=== PATIENT | male | born 1980 | race Caucasian/White ===

== ENCOUNTER 2018-05-03 11:00 | Outpatient (RCR) | payer MEDICAID, SELFPAY | END 2018-05-03 11:01 | disposition home or self-care (01) | LOC: OT 11:00 | PROVIDERS: PCP Nurse Practitioner Family; Visit Provider Nurse Practitioner Family | DX: M25.511 Pain in right shoulder (principal); M25.512 Pain in left shoulder | CPT/HCPCS: 97014; 97033; 97110; 97165; G0283 ==

== ENCOUNTER → 2018-07-12 12:20 | Outpatient (CLI) | payer MEDICAID, SELFPAY ==
--- NOTE | 2018-07-12 12:26 | XR_ITS ---
XR clavicle RT HISTORY: ITS.REASON: PAIN..ONGOING INJURY X 4 YEARS ORDERING PHYSICIAN: Yazmin Murdock PATIENT AGE: 37 years COMPARISON: None FINDINGS: No fracture or dislocation. A small lucency is noted in the distal aspect of the clavicle nonspecific. This measures 3 mm. The AC joint has an unremarkable appearance. No fracture or dislocation. IMPRESSION: Small subcortical lucency of the distal clavicle, no acute finding
--- NOTE | 2018-07-12 12:27 | XR_ITS ---
XR shoulder LT min 2V HISTORY: Left shoulder pain ITS.REASON: ONGOING INJURY X 4YEARS..PAIN ORDERING PHYSICIAN: Yazmin Murdock PATIENT AGE: 37 years Comparison: FINDINGS: The glenohumeral joint as an unremarkable appearance. There is a faint subcortical lucency of the distal clavicle nonspecific. AC joint has an otherwise unremarkable appearance. IMPRESSION: No acute finding. Possible small Geode of the distal clavicle
--- NOTE | 2018-07-12 12:27 | XR_ITS ---
XR shoulder RT min 2V HISTORY: Pain ITS.REASON: ONGOING INJURY X 4 YEARS..PAIN ORDERING PHYSICIAN: Yazmin Murdock PATIENT AGE: 37 years Comparison: 03/30/2017 FINDINGS: No fracture or dislocation. No lytic or blastic change. There is normal mineralization. The joint spaces are well-preserved. No significant degenerative/arthritic changes. No erosive changes evident. There is a small subcortical lucency of the distal clavicle fairly well-circumscribed of questionable clinical significance possibly due to small to geode IMPRESSION: 1. No acute finding. 2. Small subcortical lucency of the distal clavicle at 3 mm and may be due to a geode
== END ==
PROVIDERS: PCP Internal Medicine Adolescent Medicine; Visit Provider Nurse Practitioner Family
DX: M89.8X1 Other specified disorders of bone, shoulder (principal); M25.511 Pain in right shoulder; M25.512 Pain in left shoulder; G89.29 Other chronic pain
CPT/HCPCS: 73000; 73030

== ENCOUNTER → 2018-07-20 09:26 | Outpatient (CLI) | payer MEDICAID, SELFPAY ==
--- NOTE | 2018-07-20 09:28 | MR_ITS ---
MR shoulder RT wo con COMPARISON: None HISTORY: Right shoulder pain with limited range of motion along with numbness and tingling in right arm weakness ORDERING PHYSICIAN: Yazmin Murdock PATIENT AGE: 37 years TECHNIQUE: Multiplanar multiecho sequences performed without contrast. COMPARISON: 03/30/17 FINDINGS: There are hypertrophic changes of the acromioclavicular joint with edema at the AC joint. There is slightly downsloping acromion. The supraspinatus and infraspinatus tendons have an unremarkable appearance. The scapularis and teres minor tendon also appears unremarkable. No obvious labral tear. The bicipital tendon is in place.. No fracture or dislocation. There is a small amount of subcoracoid fluid suggesting mild subcoracoid bursitis. IMPRESSION: 1. 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 No significant enhancement. No evidence of rotator cuff tear. 3. Small amount of subcoracoid fluid suggesting mild bursitis
== END ==
PROVIDERS: PCP Internal Medicine Adolescent Medicine; Visit Provider Nurse Practitioner Family
DX: M25.511 Pain in right shoulder (principal); M25.411 Effusion, right shoulder; M89.8X1 Other specified disorders of bone, shoulder; G89.29 Other chronic pain
CPT/HCPCS: 73221

== ENCOUNTER 2018-09-20 16:16 | Outpatient (RCR) | payer MEDICAID, SELFPAY ==
--- NOTE | 2018-09-20 16:54 | HMH.PTOPEV ---
PT Outpatient Evaluation Rehab PT Outpatient Evaluation Start: 09/20/18 16:22 Freq: Status: Active Protocol: Document 09/20/18 16:38 KHUSHBUGAL (Rec: 09/20/18 16:54 KHUSHBUBRONWYNMARCOS [id number]) Electronically Signed By Ghassan Suarez, PT 09/20/18 16:38 Outpatient Therapy Subjective History Subjective History Pt is a 37 year old male presenting to outpatient PT with reports of R shoulder pain starting approximately 4 years ago that has progressively gotten worse over the past 4 months. Pt reports initial onset of symptoms started after an episode of carrying carpet rolls up stairs. Most recent diagnostics indicate R ACJ arthropathy and subacromial bursitis. 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 He has most recently received injection that have no provided any relief. He was previously seen in OT for 2 visits. Questionable compliance with OT HEP. Chief Complaint Pain Stiff Clicks Swelling Weakness Symptom Type Ache Sharp Burning Symptoms Relieved By Rest/Positioning OTC Meds Symptoms Aggravated By Physical Activity Lifting Prior Functional Limitations None Current Functional Limitations Reaching Lifting Housework Driving Sleeping Recreation Activity Symptom Description Constant but Variable Level of pain today (0-10) 5 Pain scale - at its best (0-10) 4 Pain scale - at its worst (0-10) 8 Shoulder/Elbow Eval Shoulder Objective Measurements Palpation Tenderness tenderness shoulder exam standard right tenderness over the bicipital tendon right shoulder exam standard tenderness over the SA bursa shoulder right exam standard
== END 2018-09-20 16:19 | disposition home or self-care (01) ==
LOC: PT 16:16
PROVIDERS: Visit Provider Orthopaedic Surgery
DX: M25.511 Pain in right shoulder (principal)
CPT/HCPCS: 97163

== ENCOUNTER → 2018-12-05 12:36 | Outpatient (CLI) | payer MEDICAID, SELFPAY ==
--- NOTE | 2018-12-05 12:50 | XR_ITS ---
XR chest 2V HISTORY: ITS.REASON: smoker/ preop testing ORDERING PHYSICIAN: Tara Ozuna MD PATIENT AGE: 38 years COMPARISON: None FINDINGS: The cardiomediastinal silhouette and pulmonary vascularity are within normal limits. The lungs are clear without infiltrates, suspicious nodules, or pleural effusions. No acute bony abnormalities. IMPRESSION: Negative chest, no acute finding
[2018-12-05 13:56] LABS: INR 0.98 (0.9-1.1); Prothrombin Time 10.1 seconds (9.4-11.8)
[2018-12-05 13:58] LABS: Basophils % 0.3 % (0.1-2.0); Eosinophils % 0.4 % (0.1-12.0); Hemoglobin 16.3 g/dL (14.1-18.0); Lymphocytes # 2.7 K/mm3 (0.7-4.5); Lymphocytes % 26.6 % (10-50); Mean Corpuscular HGB Conc 32.5 g/dL (31.8-35.4); Mean Corpuscular Hemoglobin 29.8 pg (27.0-31.2); Mean Corpuscular Volume 91.6 fl (80-94); Mean Platelet Volume 7.1 fl (7.4-10.4); Monocytes # 0.6 K/mm3 (0.1-1.0); Monocytes % 5.5 % (1.7-9.3); Neutrophils # 6.7 K/mm3 (1.8-7.8); Neutrophils % 67.2 % (37.0-80.0); Platelet Count 338 K/mm3 (142-424); Red Blood Count 5.46 M/mm3 (4.60-6.20); Red Cell Distribution Width 12.5 % (11.5-17.5)
[2018-12-05 15:21] LABS: Alanine Aminotransferase 45 U/L (12-78); Albumin Level 4.2 gm/dL (3.4-5.0); Albumin/Globulin Ratio 1.4 (1.1-1.8); Alkaline Phosphatase 78 U/L (46-116); Anion Gap 13.8 mEq/L (5-15); Aspartate Amino Transferase 20 U/L (15-37); Bilirubin,Total 0.5 mg/dL (0.2-1.0); Blood Urea Nitrogen 14 mg/dL (7-18); Calcium 9.6 mg/dL (8.5-10.1); Carbon Dioxide 27 mmol/L (21.0-32.0); Chloride 105 mmol/L (98-107); Creatinine,Serum 0.76 mg/dL (0.70-1.30); Estimated Glomerular Filt Rate 115 ml/min (>60); GFR (African American) 139 ML/MIN (>60); Globulin 3.1 gm/dl (1.3-3.2); Glucose 109 mg/dL (74-106); Potassium 3.8 mmoL/L (3.5-5.1); Sodium 142 mmol/L (136-145); Total Protein,Serum 7.3 gm/dL (6.4-8.2)
== END ==
PROVIDERS: PCP Internal Medicine Adolescent Medicine; Visit Provider Orthopaedic Surgery
DX: Z01.818 Encounter for other preprocedural examination (principal); M25.511 Pain in right shoulder
CPT/HCPCS: 36415; 71046; 80053; 85025; 85610

== ENCOUNTER 2019-01-30 11:00 | Outpatient (RCR) | payer MEDICAID, SELFPAY ==
--- NOTE | 2019-01-02 14:38 | HMH.OTOPEV ---
OT Inpatient Evaluation Rehab OT Outpatient Eval Start: 01/02/19 11:50 Freq: Status: Active Protocol: Document 01/02/19 11:51 RMARSHALL (Rec: 01/02/19 11:53 [id number] Electronically Signed By Britt Moses OT 01/02/19 11:51 Outpatient Therapy Subjective History Subjective History Pt is a 38 year old male who recently had surgery on right shoulder. Pt is s/p R shoulder arthroscopy, SAD, and DCE on 12/11/18. Pt demonstrates with decreased AROM/PROM and strength. Pt also reports consistent pain at the right shoulder. Pt will continue to be seen in order to address all deficits. Chief Complaint Pain Stiff Weakness Symptom Type Ache Throb Sharp Dull Stabbing Shooting Symptoms Relieved By Rest/Positioning Ice Symptoms Aggravated By Physical Activity Lifting Prior Functional Limitations None Current Functional Limitations Reaching Lifting Housework Dressing Driving Sleeping Standing Recreation Activity Symptom Description Constant but Variable Level of pain today (0-10) 3 Pain scale - at its best (0-10) 3 Pain scale - at its worst (0-10) 10 Shoulder/Elbow Eval Shoulder Objective Measurements Shoulder ROM Right Shoulder Abduction Active Range of 85 degrees Motion (degrees) Shoulder Abduction Passive Range of 110 degrees Motion (degrees) Shoulder Flexion Active Range of Motion 110 degrees (degrees) Query Text: Shoulder Flexion Passive Range of Motion 120 degrees (degrees) Shoulder External Rotation Active Range 40 degrees of Motion (degrees) Shoulder External Rotation Passive Range 80 degrees of Motion (degrees) Shoulder Internal Rotation Active Range 55 degrees of Motion (degrees) Shoulder Internal Rotation Passive Range 60 degrees of Motion (degrees) pain with active ROM shoulder exam right standard
== END 2019-01-30 11:05 | disposition home or self-care (01) ==
LOC: OT 11:00
PROVIDERS: Visit Provider Orthopaedic Surgery
DX: M75.51 Bursitis of right shoulder (principal); M19.011 Primary osteoarthritis, right shoulder
CPT/HCPCS: 97014; 97110; 97140; 97166; G0283

== ENCOUNTER → 2019-05-22 12:57 | Outpatient (CLI) | payer MEDICAID, SELFPAY ==
--- NOTE | 2019-05-22 12:59 | MR_ITS ---
PROCEDURE: MR SHOULDER LT WO CON CLINICAL INDICATION: ROTATOR CUFF SYNDROME OF LEFT SHOULDER Left shoulder pain with limited range of motion COMPARISON: SHOULDCMLT XR shoulder LT min 2V from 07/12/2018 TECHNIQUE: Routine multiplanar multi echo sequences are performed without gadolinium enhancement. FINDINGS: There is mild subacromial stenosis with acromioclavicular arthropathy. There is mild thickening of the supraspinatus tendon with increased T2 signal consistent with tendinopathy/tendinosis. There is focal increased T2 signal involving the distal aspect of the supraspinatus tendon posteriorly and distally consistent with a full-thickness tear. The infraspinatus, subscapularis, and teres minor tendons are intact. No obvious labral tear. Bicipital tendon is in place. There is a small amount of loculated appearing fluid in the subacromial region anteriorly IMPRESSION: 1. There is a full-thickness tear involving the posterior and distal aspect of the supraspinatus tendon. The tear however is not complete. There is no retraction of the supraspinatus tendon or muscle. There does appear to be some intact fibers anteriorly with tendinopathy/tendinosis of the supraspinatus tendon. 2. Subacromial stenosis with acromioclavicular arthropathy Dictated by: Ag Jackson MD 05/24/2019 10:55 Electronically signed by Ag Jackson MD in [place] 05/24/2019 10:55
== END ==
PROVIDERS: PCP Internal Medicine Adolescent Medicine; Visit Provider Internal Medicine Adolescent Medicine
DX: M75.102 Unspecified rotator cuff tear or rupture of left shoulder, not specified as traumatic (principal)
CPT/HCPCS: 73221

== ENCOUNTER → 2020-03-27 12:05 | Outpatient (CLI) | payer OTHER, SELFPAY ==
--- NOTE | 2020-03-27 12:10 | XR_ITS ---
PROCEDURE: XR FOOT LT MIN 3V CLINICAL INDICATION: L FOOT PAIN COMPARISON: No exams were available for comparison FINDINGS: No fracture or dislocation. No lytic or blastic change. There is normal mineralization. The joint spaces are well-preserved. No significant degenerative/arthritic changes. No erosive changes evident. Other findings:None. IMPRESSION: No acute findings. Dictated by: Ag Jackson MD 03/27/2020 14:34 Electronically signed by Ag Jackson MD in [place] 03/27/2020 14:34
== END ==
PROVIDERS: PCP Internal Medicine Adolescent Medicine; Visit Provider Internal Medicine Adolescent Medicine
DX: M79.672 Pain in left foot (principal)
CPT/HCPCS: 73630

== ENCOUNTER 2021-12-13 13:42 | Emergency (ER) | payer OTHER, SELFPAY ==
[2021-12-13 14:45] VITALS: BP 146/98; PULSE 83; RESP 19; TEMP 36.7; O2SAT 99; BMI 28.2
--- NOTE | 2021-12-13 15:07 | HMH.EDUTC ---
[facility] [place] Disposition Clinical Impression: Bronchitis Sinusitis Qualifiers: Sinusitis location: unspecified location Chronicity: unspecified Qualified Code(s): J32.9 - Chronic sinusitis, unspecified Disposition: Home, Self-Care Condition on Discharge: Good Instructions: Sinusitis, DI for Sinusitis Additional Instructions: ? Start antibiotic today. Be sure to complete entire prescription even if feeling better ? Monitor temp. Tylenol every 4 hours as needed and / or ibuprofen every 6 hours as needed ( As long as your primary care physician has told you that it ok to take both. For fever/aches/pains ER if no less than 101 despite Tylenol or Motrin ? Humidifier/vaporizer or hot steamy shower *Tessalon Perles will not cause drowsiness but use at bedtime to help stop cough so that you may get some rest. *Start steroid today. Helps with inflammation therefore, cough and wheezing. Follow directions on the package. Reviewed side effects. Patient reports taking them before. Follow up IMMEDIATELY for new or worsening of symptoms OR no noticeable improvement over the next 48-72 hours. 911 immediately for any life threatening symptoms such as chest pain or difficulty breathing Prescriptions: Benzonatate [Benzonatate 100mg cap] 100 mg PO Q8HP PRN #15 cap PRN Reason: Cough Transmission Status: Pending to [employer] # methylPREDNISolone [Medrol 4mg tab] 4 mg PO DIRECTED #21 tab Transmission Status: Pending to [employer] # Azithromycin [Z-Wai 250mg Tab] 250 mg PO DIRECTED #6 tab Transmission Status: Pending to [employer] # Referrals: Valentin Youssef MD [Primary Care Provider] - As needed Forms: Work/School Release Time of Disposition: 15:25 Medical Decision Making - Jean Pierre Inquiry Pt receiving controlled substance: No Jean Pierre was queried for this patient: No Vital Signs: 12/13/21 14:45 Temperature 98.1 F Temperature Source Oral Pulse Rate [Right Brachial] 83 Respiratory Rate 19 Blood Pressure [Right Arm] 146/98 H Blood Pressure Mean [Right Arm] 114 Blood Pressure Source [Right Arm] Automatic Cuff Blood Pressure Position [Right Arm] Sitting 02 Sat by Pulse Oximetry 99 Oxygen Delivery Method Room Air - Lab Data Lab results reviewed: Yes: I reviewed the patient's lab results. [facility] [place] HPI - General Stated complaint: congestion, ACKERMAN, low temp, nausea, SOA Time Seen by Provider: 12/13/21 15:07 Mode of Arrival: Ambulatory Source of Information: Patient Limitations: No Limitations Description of Symptoms (Recalled from Triage Doc. by RN): PATIENT C/O CONGESTION, COUGH, SOA, AND FATIGUE SINCE MONDAY HEENT Symptoms (Recalled from RN notes): Yes Resp Symptoms (Recalled from RN notes): Yes Skin Symptoms (Recalled from RN notes): No MS Symptoms (Recalled from RN notes): No Functional Status (Recalled from RN notes): WNL - History of Present Illness Provider Complaint: Patient states that he has not felt well for about a week States that he has been having sinus pain and pressure along with drainage in the back of his throat cough, sore throat and not feeling well States he feels like it is trying to move into his chest so he came in to get checked out - Related Data Home Medications Medication Instructions Recorded Confirmed Acetaminophen [Tylenol 325mg 650 mg PO TID 05/27/19 06/03/19 Tablet] Celecoxib 1 tab PO BID 05/27/19 06/03/19 Previous Rx's Medication Instructions Recorded Azithromycin [Z-Wai 250mg Tab] 250 mg PO DIRECTED #6 tab 12/13/21 Benzonatate [Benzonatate 100mg 100 mg PO Q8HP PRN #15 cap 12/13/21 cap] methylPREDNISolone [Medrol 4mg 4 mg PO DIRECTED #21 tab 12/13/21 tab] Allergies Allergy/AdvReac Type Severity Reaction Status Date / Time No Known Allergies Allergy Verified 06/03/19 14:10 - Worker's Comp Is this a Worker's Comp case?: No [facility] History - Hepatitis A Screen Drug use history?: No High r
[2021-12-13 15:08] LABS: UTC Influenza A Antigen Negative (Negative); UTC Influenza B Antigen Negative (Negative)
[2021-12-13 15:25] VITALS: BP 146/98; PULSE 83; RESP 19; TEMP 36.7; O2SAT 99
== END 2021-12-13 15:30 | disposition home or self-care (01) ==
PROVIDERS: Emergency Provider Nurse Practitioner; PCP Internal Medicine Adolescent Medicine
DX: J32.9 Chronic sinusitis, unspecified (principal); I10 Essential (primary) hypertension; F17.210 Nicotine dependence, cigarettes, uncomplicated; Z79.52 Long term (current) use of systemic steroids; Z82.49 Family history of ischemic heart disease and other diseases of the circulatory system; Z82.5 Family history of asthma and other chronic lower respiratory diseases; Z83.3 Family history of diabetes mellitus
CPT/HCPCS: 87804; 99213; G0463

== ENCOUNTER → 2022-02-09 10:00 | Outpatient (CLI) | payer OTHER, SELFPAY ==
--- NOTE | 2022-02-09 10:08 | XR_ITS ---
FINAL REPORT CLINICAL HISTORY: midline low back pain FINDINGS: AP, lateral, and oblique views of the lumbar spine were obtained. There is no acute fracture or acute malalignment. Vertebral body height is preserved. There is mild degenerative disc disease at L4-L5 and L5-S1.. No acute paraspinal abnormality is identified. IMPRESSION: Mild degenerative disc disease at L4-L5 and L5-S1 with no acute osseous abnormalities of the lumbar spine. Reviewed, Interpreted and Dictated by Kelly Ordoñez MD Transcribed by Marya Weir Authenticated by Kelly Ordoñez MD on 02/09/2022 01:15:53 PM [facility]
== END ==
PROVIDERS: PCP Internal Medicine Adolescent Medicine; Visit Provider Internal Medicine Adolescent Medicine
DX: M54.50 Low back pain, unspecified (principal)
CPT/HCPCS: 72110

== ENCOUNTER 2022-02-15 12:52 | Emergency (ER) | payer OTHER, SELFPAY ==
[2022-02-15 13:01] VITALS: BP 142/87; PULSE 89; RESP 17; TEMP 36.7; O2SAT 99; BMI 30.5
--- NOTE | 2022-02-15 13:14 | HMH.EDUTC ---
[facility] [place] Clinical Impression: Low back pain with radiation Disposition: Home, Self-Care Condition on Discharge: Good Instructions: DI for Low Back Pain, DI for Back Strain or Sprain Additional Instructions: Go home and rest. It would be best if you rested tomorrow too. No heavy lifting. No twisting. Take the oral medications as directed. The muscle relaxer (cyclobenzaprine--Flexeril) will make you drowsy, so don't drive or operate heavy machinery after taking it. Don't start the oral steroids (medrol dose pack) until tomorrow, since you had the shots in here today. Follow up with your regular doctor. GO TO THE ER FOR ANY WORSENING SYMPTOMS OR CONCERN, ESPECIALLY BOWEL OR BLADDER ISSUES, SADDLE AREA NUMBNESS, FEVER, ETC Prescriptions: Ondansetron [Zofran 4mg ODT] 4 mg PO Q8HP PRN #20 tab PRN Reason: Nausea Transmission Status: Received by [employer] #[id number] Cyclobenzaprine HCl [Cyclobenzaprine 10mg Tab] 10 mg PO BIDP PRN #20 tab PRN Reason: Muscle Spasm Transmission Status: Received by [employer] #[id number] methylPREDNISolone [Medrol] 4 mg PO DIRECTED 6 Days #21 packet Transmission Status: Received by [employer] #[id number] Referrals: Valentin Youssef MD [Primary Care Provider] - Forms: Work/School Release Time of Disposition: 13:41 Medical Decision Making - Medical Records Medical records reviewed: No: I reviewed the patient's medical records. - Jean Pierre Inquiry Pt receiving controlled substance: No Vital Signs: 02/15/22 13:01 02/15/22 13:51 Temperature 98.1 F 98.1 F Temperature Source Oral Oral Pulse Rate 89 Pulse Rate [Left Radial] 89 Respiratory Rate 17 17 Blood Pressure 142/87 H Blood Pressure [Right Arm] 142/87 H Blood Pressure Mean [Right Arm] 105 02 Sat by Pulse Oximetry 99 Orders (Tests/Meds): ED MEDICATIONS Discontinued Medications Generic Name Dose Route Start Last Admin Trade Name Freq PRN Reason Stop Dose Admin Ketorolac Tromethamine 60 mg 02/15/22 13:32 02/15/22 13:38 Ketorolac 60mg/2ml Vial IM 02/15/22 13:33 60 mg ONCE ONE Administration Methylprednisolone Sodium Succinate 125 mg 02/15/22 13:32 02/15/22 13:37 Methylprednisolone Sod Succ 125mg Vial IM 02/15/22 13:33 125 mg ONCE ONE Administration [facility] [place] HPI - General Stated complaint: back pain Time Seen by Provider: 02/15/22 13:14 Source of Information: Patient Description of Symptoms (Recalled from Triage Doc. by RN): patient comes in with complaints of back pain. pt went to PCP on recently and had a lumbar xray on 02/09. patient states that pain in back has gotten worse. it is on right side of back and pain shoots down into leg. HEENT Symptoms (Recalled from RN notes): No Resp Symptoms (Recalled from RN notes): No Skin Symptoms (Recalled from RN notes): No MS Symptoms (Recalled from RN notes): Yes Functional Status (Recalled from RN notes): wnl - History of Present Illness Provider Complaint: He is here with complaints of low back pain that radiates down his left leg at times. His symptoms began about 1 week ago. He denies any preceding injury, but he did go camping and have to lift something very heavy to get his camper set up before it started. He saw his pcp 3 days ago and an x-ray was done and tramadol was prescribed. He states that the medication is not helping and is having to miss more work - Related Data Home Medications Medication Instructions Recorded Confirmed Acetaminophen [Tylenol 325mg 650 mg PO TID 05/27/19 06/03/19 Tablet] Celecoxib 1 tab PO BID 05/27/19 06/03/19 Previous Rx's Medication Instructions Recorded Azithromycin [Z-Wai 250mg Tab] 250 mg PO DIRECTED #6 tab 12/13/21 Benzonatate [Benzonatate 100mg 100 mg PO Q8HP PRN #15 cap 12/13/21 cap] methylPREDNISolone [Medrol 4mg 4 mg PO DIRECTED #21 tab 12/13/21 tab] Cyclobenzaprine HCl 10 mg PO BIDP PRN #20 tab 02/15/22 [Cycloben
[2022-02-15 13:51] VITALS: BP 142/87; PULSE 89; RESP 17; TEMP 36.7
== END 2022-02-15 13:53 | disposition home or self-care (01) ==
PROVIDERS: Emergency Provider Nurse Practitioner Family; PCP Internal Medicine Adolescent Medicine
DX: M54.50 Low back pain, unspecified (principal); M54.16 Radiculopathy, lumbar region
CPT/HCPCS: 96372; 99212; G0463

== ENCOUNTER → 2022-02-24 08:50 | Outpatient (CLI) | payer OTHER, SELFPAY ==
--- NOTE | 2022-02-24 11:10 | CT_ITS ---
FINAL REPORT CLINICAL HISTORY: INGUINAL PAIN, oral contrast FINDINGS: Technique: Oral contrast was administered. Axial images through the abdomen and pelvis were performed. This study was performed with techniques to keep radiation doses as low as reasonably achievable (ALARA). Individualized dose reduction techniques using automated exposure control or adjustment of mA and/or kV according to the patient's size were employed. Abdomen: The lung bases are clear. The liver is normal in size and attenuation. The gallbladder is present. The spleen is unremarkable. The adrenals are normal. The pancreas is unremarkable. There is a single less than 3 mm nonobstructing left renal stone. The aorta is normal in caliber. There is no free fluid or adenopathy. Pelvis: The appendix is normal. The urinary bladder is unremarkable. There is no free fluid or adenopathy. The descending and sigmoid colon are decompressed but there is likely mild wall thickening which may represent colitis IMPRESSION: No acute intra-abdominal or intrapelvic abnormality. Nonobstructing left renal stone. Descending and sigmoid colon are decompressed, likely with mild wall thickening which may represent colitis., Reviewed, Interpreted and Dictated by Serge Malik III, MD Transcribed by Marya Weir Authenticated and [facility]
== END ==
PROVIDERS: PCP Internal Medicine Adolescent Medicine; Visit Provider Internal Medicine Adolescent Medicine
DX: R10.30 Lower abdominal pain, unspecified (principal)
CPT/HCPCS: 74176

== ENCOUNTER 2023-06-12 14:43 | Emergency (ER) | payer OTHER, SELFPAY ==
--- NOTE | 2023-06-12 14:47 | XR_ITS ---
FINAL REPORT CLINICAL HISTORY: SMASHED INDEX FINGER FINDINGS: 3 views of the right hand were obtained. There is no acute fracture or dislocation. The joint spaces are intact. There is no soft tissue abnormality. IMPRESSION: No acute process. Reviewed, Interpreted and Dictated by Kelly Ordoñez MD Transcribed by Chirag Manuel Authenticated and [facility]
[2023-06-12 14:50] VITALS: BP 149/91; PULSE 74; RESP 19; TEMP 36.6; O2SAT 99; BMI 29.8
--- NOTE | 2023-06-12 15:24 | EXP.UTC ---
Discharge Plan Disposition Patient Disposition: Home, Self-Care Condition: Good Prescriptions Prescriptions: New amoxicillin-pot clavulanate 875-125 mg Tablet 1 tab PO Q12H 7 Days Qty: 14 0RF No Action cyclobenzaprine 10 MG tablet 10 mg PO BIDP PRN (Reason: Muscle Spasm) Qty: 20 0RF methylprednisolone 4 MG tablets,dose pack 4 mg PO DIRECTED 6 Days Qty: 21 0RF ondansetron 4 MG tablet,disintegrating 4 mg PO Q8HP PRN (Reason: Nausea) Qty: 20 0RF celecoxib 200 MG capsule 1 tab PO BID Patient Comments: TAKE 1 CAPSULE BY MOUTH TWICE A DAY FOR 1 WEEK acetaminophen 325 MG tablet 650 mg PO TID azithromycin 250 MG tablet 250 mg PO DIRECTED Qty: 6 0RF Rx Instructions: Take two (2) tablets on day #1, then one (1) tablet day #2 thru #5 methylprednisolone 4 MG tablet 4 mg PO DIRECTED Qty: 21 0RF Rx Instructions: Take as directed on package instructions benzonatate 100 MG capsule 100 mg PO Q8HP PRN (Reason: Cough) Qty: 15 0RF Referrals Follow up/Referrals: Valentin Youssef MD [Primary Care Provider] - See instructions Activity Restrictions/Add. Instructions Additional Instructions/Restrictions: Suture instructions: ?You have required stitches today. Please read the following instructions so you know how to care for them: ?1. Keep wound area dry for the first 24 hours. 2?? May clean gently with mild soap and water, after 48 hours to prevent crusting over suture knots. 3. You may shower if your provider gives permission but do not take a bath until the skin is healed.. 4. Never leave a wet dressing or Band-Aid on your stitches as this allows bacteria to reach the area and may cause infection. Band-aids can cause the wound to sweat and not recommended to wear for long periods of time Watch for signs of infection: ? Increasing redness, tenderness or warmth around the suture site ? Unusual swelling around the site ? Appearance of pus around each suture or any red streaks ? Fever If you develop any of the above signs or symptoms of infection, Follow up with Family Physician immediately 5. Suture removal in _10-12___days 6. Return to [facility] or follow up with family doctor for removal. This can be done by any medical provider dur?ing regular hours on Monday through Monday, by appointment. Clinical Impressions Clinical Impression: Laceration Instructions Patient Instructions: DI for Laceration Repair, DI for Laceration Repair -- Simple Discharge ED Provider: La Roy [facility] [place] HPI General Stated complaint: AO06/12@work, lac on Rt pointer finger Mode of Arrival: Ambulatory Source of Information: Patient Limitations: No Limitations Time Seen by Provider: 06/12/23 15:24 Description of Symptoms (Recalled from Triage Doc. by RN): PATIENT C/O LACERATION TO RIGHT INDEX FINGER AFTER GETTING IT SMASHED BY ROOF SHINGLES TODAY HEENT Symptoms (Recalled from RN notes): No Resp Symptoms (Recalled from RN notes): No Skin Symptoms (Recalled from RN notes): Yes MS Symptoms (Recalled from RN notes): No Functional Status (Recalled from RN notes): WNL History of Present Illness Provider Complaint: Patient states that he was moving some shingles inside the van when he got his right index finger smashed between shingles and door latch States that he has a cut beside his fingernail States that happened around 1130 today unsure of last tetanus Related Data Home Medications Medication Instructions Recorded Confirmed acetaminophen 325 mg tablet 650 mg PO TID Pain 05/27/19 06/03/19 celecoxib 200 mg capsule 1 tab PO BID Pain 05/27/19 06/03/19 Previous Rx's Medication Instructions Recorded azithromycin 250 mg tablet 250 mg PO DIRECTED #6 tabs 12/13/21 benzonatate 100 mg capsule 100 mg PO Q8HP PRN Cough #15 caps 12/13/21 methylprednisolone 4 mg tablet 4 mg PO DIRECTED #21 tabs 12/13/21 cyclobenzaprine 10 mg tablet 10 mg PO BIDP PRN Muscle Spasm #
[2023-06-12 16:55] VITALS: BP 149/91; PULSE 74; RESP 19; TEMP 36.6; O2SAT 99
== END 2023-06-12 17:01 | disposition home or self-care (01) ==
PROVIDERS: Emergency Provider Nurse Practitioner; PCP Internal Medicine Adolescent Medicine
DX: S61.210A Laceration without foreign body of right index finger without damage to nail, initial encounter (principal); F17.210 Nicotine dependence, cigarettes, uncomplicated; W23.0XXA Caught, crushed, jammed, or pinched between moving objects, initial encounter; Z23 Encounter for immunization
CPT/HCPCS: 12001; 73130; 90471; 90715; 96372; 99213; 99214; G0463

== ENCOUNTER 2023-09-14 12:31 | Emergency (ER) | payer OTHER, SELFPAY ==
[2023-09-14 13:30] VITALS: BP 150/90; PULSE 83; RESP 19; TEMP 36.6; O2SAT 98; BMI 29.9
[2023-09-14 13:48] LABS: UTC Influenza A Antigen Negative (Negative); UTC Influenza B Antigen Negative (Negative)
--- NOTE | 2023-09-14 13:56 | EXP.UTC ---
Discharge Plan Disposition Patient Disposition: Home, Self-Care Condition: Good Prescriptions Prescriptions: New benzonatate 100 mg capsule 100 mg PO TID PRN (Reason: cough) Qty: 30 0RF amoxicillin-pot clavulanate 875-125 mg Tablet 1 tab PO Q12H Qty: 20 0RF methylprednisolone [Medrol (Wai)] 4 mg tablets,dose pack See Rx Instructions .Route .COMPLEX 6 Days Qty: 21 0RF Rx Instructions: taper pack; guaifenesin [Mucinex] 600 mg tablet extended release 12hr 1,200 mg PO BID PRN (Reason: cough) Qty: 20 0RF No Action cyclobenzaprine 10 MG tablet 10 mg PO BIDP PRN (Reason: Muscle Spasm) Qty: 20 0RF celecoxib 200 MG capsule 1 tab PO BID Patient Comments: TAKE 1 CAPSULE BY MOUTH TWICE A DAY FOR 1 WEEK Referrals Follow up/Referrals: Valentin Youssef MD [Primary Care Provider] - See instructions Activity Restrictions/Add. Instructions Additional Instructions/Restrictions: *Monitor Temp, Over the counter Motrin or Tylenol as directed/as needed Tylenol every 4 hours and Motrin every 6 hours (as long as your family doctor has told you that you can take it) for fever or pain. and straight to ER if unable to lower temp less than 101.0 after medication given *Warm salt water gargles may help to soothe the throat *Throat Lozenges? *Warm fluids like tea with honey may help to soothe the throat? *Sleep elevated *Humidifier/Vaporizer Take medication as prescribed Follow up IMMEDIATELY for new or worsening symptoms or no Noticeable improvement over the next 48-72 hours. 911 for difficulty breathing or swallowing Clinical Impressions Clinical Impression: Sinusitis Qualifiers: Sinusitis location: unspecified location Chronicity: unspecified Qualified Code(s): J32.9 - Chronic sinusitis, unspecified Instructions Patient Instructions: Sinusitis, DI for Sinusitis Discharge ED Provider: La Roy [facility] HPI General Stated complaint: congestion,runny nose, fever Mode of Arrival: Ambulatory Source of Information: Patient Limitations: No Limitations Time Seen by Provider: 09/14/23 13:56 Description of Symptoms (Recalled from Triage Doc. by RN): PATIENT C/O CONGESTION, COUGH, FATIGUE, AND SOA X 3 DAYS HEENT Symptoms (Recalled from RN notes): Yes Resp Symptoms (Recalled from RN notes): Yes Skin Symptoms (Recalled from RN notes): No MS Symptoms (Recalled from RN notes): No Functional Status (Recalled from RN notes): WNL History of Present Illness Provider Complaint: Patient states that he has been sick for several days States that he has been having sinus congestion and pressure and not able to breath out of his nose and it makes him feel SOA States that he has been having cough but not coughing nothing up, headache and pressure behind his eyes so today when he wasnt feeling any better he came in to get checked Related Data Home Medications Medication Instructions Recorded Confirmed celecoxib 200 mg capsule 1 tab PO BID Pain 05/27/19 06/03/19 Previous Rx's Medication Instructions Recorded cyclobenzaprine 10 mg tablet 10 mg PO BIDP PRN Muscle Spasm #20 02/15/22 tabs amoxicillin 875 mg-potassium 1 tab PO Q12H #20 tabs 09/14/23 clavulanate 125 mg tablet benzonatate 100 mg capsule 100 mg PO TID PRN cough #30 caps 09/14/23 guaifenesin 600 mg tablet, 1,200 mg PO BID PRN cough #20 tabs 09/14/23 extended release 12 hr (Mucinex) methylprednisolone 4 mg tablets in See Rx Instructions .Route 09/14/23 a dose pack (Medrol (Wai)) .COMPLEX 6 days #21 tabs Allergies Allergy/AdvReac Type Severity Reaction Status Date / Time No Known Allergies Allergy Verified 06/03/19 14:10 Worker's Comp Is this a Worker's Comp case?: No PFSH [facility] Disclaimer: The information contained in this section may have been updated after the patient was seen, as this information can be updated by other users. 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 current occupational exposures/hazards: No caffeine: Yes ROS Obtained: Yes All systems reviewed & no additional complaints except as documented and Yes Systems reviewed as appropriate & no additional complaints except as documented Constitutional Constitutional: Reports system reviewed and no additional complaints, except as documented, Reports as per HPI, Reports fatigue and Reports headache(s) ENT Ears, Nose, Mouth, and Throat: Reports system reviewed and no additional complaints, except as documented, Reports as per HPI, Reports headache(s), Reports sinus pain, Reports sinus pressure and Reports sore throat Cardiovascular Cardiovascular: Reports system reviewed and no additional complaints, except as documented and Reports as per HPI Respiratory Respiratory: Reports system reviewed and no additional complaints, except as documented, Reports as per HPI, Reports shortness of breath (at times when he cant breath out of his nose), Denies chest congestion and Reports cough Gastrointestinal Gastrointestingal: Reports system reviewed and no additional complaints, except as documented and as per HPI Musculoskeletal Musculoskeletal: Reports system reviewed and no additional complaints, except as documented and Reports as per HPI Integumentary/Breasts Skin/Breast: Reports system reviewed and no additional complaints, except as documented and Reports as per HPI Neurologic Neurologic: Reports headache(s) Endocrine Endocrine: Reports fatigue Physical Exam General General appearance: alert and in no apparent distress ENT ENT exam: Present mucous membranes moist Expanded ENT Exam TM/Canal exam: Bilateral TM: bulging Nose exam: Present sinus tenderness Throat exam: Present other (Pharyngeal erythema noted with PND) Chest Chest inspection: Present normal inspection and symmetric chest wall rise Respiratory Respiratory exam: Present normal lung sounds bilaterally; Absent respiratory distress or wheezes Cardiovascular Cardiovascular exam: Present regular rate, normal rhythm and normal heart sounds Abdominal Exam Abdominal exam: Present soft and normal bowel sounds; Absent distention or tenderness Neurological Exam Neurological exam: Present alert, oriented X3 and normal gait Medical Decision Making Jean Pierre Inquiry Pt receiving controlled substance: No Jean Pierre was queried for this patient: No Vital Signs: 09/14/23 13:30 Temperature 97.8 F Temperature Source Oral Pulse Rate [Left Brachial] 83 Respiratory Rate 19 Blood Pressure [Left Arm] 150/90 H Blood Pressure Mean [Left Arm] 110 Blood Pressure Source [Left Arm] Automatic Cuff Blood Pressure Position [Left Arm] Sitting 02 Sat by Pulse Oximetry 98 Oxygen Delivery Method Room Air Lab Data Lab results reviewed: Yes I reviewed the patient's lab results. Lab Results 09/14/23 13:33: Influenza Type A Ag Negative, Influenza Type B Ag Negative
[2023-09-14 14:09] VITALS: BP 150/90; PULSE 83; RESP 19; TEMP 36.6; O2SAT 98
== END 2023-09-14 14:13 | disposition home or self-care (01) ==
PROVIDERS: Emergency Provider Nurse Practitioner; PCP Internal Medicine Adolescent Medicine
DX: J01.90 Acute sinusitis, unspecified (principal); R51.9 Headache, unspecified; R50.9 Fever, unspecified; R09.81 Nasal congestion; R06.02 Shortness of breath; R53.83 Other fatigue; R05.9 Cough, unspecified; F17.210 Nicotine dependence, cigarettes, uncomplicated
CPT/HCPCS: 87804; 99212; 99214; G0463

== ENCOUNTER 2024-01-15 20:19 | Emergency (ER) | payer OTHER, SELFPAY ==
[2024-01-15 20:20] VITALS: BP 155/98; PULSE 80; RESP 18; TEMP 36.8; O2SAT 100; BMI 31.0
--- NOTE | 2024-01-15 20:35 | ED_ITS ---
Discharge Plan Disposition Patient Disposition: Home, Self-Care Condition: Good Prescriptions Prescriptions: No Action cyclobenzaprine 10 MG tablet 10 mg PO BIDP PRN (Reason: Muscle Spasm) Qty: 20 0RF benzonatate 100 mg capsule 100 mg PO TID PRN (Reason: cough) Qty: 30 0RF amoxicillin-pot clavulanate 875-125 mg Tablet 1 tab PO Q12H Qty: 20 0RF methylprednisolone [Medrol (Wai)] 4 mg tablets,dose pack See Rx Instructions .Route .COMPLEX 6 Days Qty: 21 0RF Rx Instructions: taper pack; guaifenesin [Mucinex] 600 mg tablet extended release 12hr 1,200 mg PO BID PRN (Reason: cough) Qty: 20 0RF celecoxib 200 MG capsule 1 tab PO BID Patient Comments: TAKE 1 CAPSULE BY MOUTH TWICE A DAY FOR 1 WEEK Referrals Follow up/Referrals: Horace Jaime DO [Staff Physician] - See instructions (Distal tuft fracture fifth finger) Valentin Youssef MD [Primary Care Provider] - See instructions Activity Restrictions/Add. Instructions Additional Instructions/Restrictions: Keep splint on while working. Alternate Tylenol with Motrin as needed for pain swelling. Turn to ER as needed for any worsening signs or symptoms as needed Clinical Impressions Clinical Impression: Closed fracture of tuft of distal phalanx of finger Discharge ED Provider: Vahid Adair General Adult HPI <JASEN Yanes - Last Filed: 01/15/24 21:55> General Chief complaint: Extremity Injury, Upper Stated complaint: AO 01/15/24 1700 Injury little finger left hand Time Seen by Provider: 01/15/24 20:34 Mode of Arrival: Ambulatory Source of Information: Patient Limitations: No Limitations Description of Symptoms (Recalled from ER Triage Doc. by RN): Patient smashed left pinky finger between some cinderblocks at approximately 1700. Small abrasion noted, patient feels as though it's bone on bone . History of Present Illness HPI narrative: Patient presents for evaluation of an injury of his left hand. Patient was moving cinderblock off of a pallet and 1 fell off crushing his left hand between that and another cinderblock. Patient felt immediate pain primarily at the left fifth digit. Patient presents for evaluation patient reports that is painful range of motion still has motor and sensory and denies any other injury. Related Data Home Medications Medication Instructions Recorded Confirmed celecoxib 200 mg capsule 1 tab PO BID Pain 05/27/19 06/03/19 Previous Rx's Medication Instructions Recorded cyclobenzaprine 10 mg tablet 10 mg PO BIDP PRN Muscle Spasm #20 02/15/22 tabs amoxicillin 875 mg-potassium 1 tab PO Q12H #20 tabs 09/14/23 clavulanate 125 mg tablet benzonatate 100 mg capsule 100 mg PO TID PRN cough #30 caps 09/14/23 guaifenesin 600 mg tablet, 1,200 mg (2 x 600 mg) PO BID PRN 09/14/23 extended release 12 hr (Mucinex) cough #20 tabs methylprednisolone 4 mg tablets in See Rx Instructions .Route 09/14/23 a dose pack (Medrol (Wai)) .COMPLEX 6 days #21 tabs Allergies Allergy/AdvReac Type Severity Reaction Status Date / Time No Known Allergies Allergy Verified 06/03/19 14:10 [facility] <JASEN Yanes - Last Filed: 01/15/24 21:55> [facility] Disclaimer: The information contained in this section may have been updated after the patient was seen, as this information can be updated by other users. 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 current occupational exposures/hazards: No caffeine: Yes <JASEN Yanes - Last Filed: 01/15/24 21:55> ROS Obtained: Yes Systems reviewed as appropriate & no additional complaints except as documented Physical Exam <JASEN Yanes - Last Filed: 01/15/24 21:55> General General appearance: alert and in no apparent distress Respiratory Respiratory exam: Present normal lung sounds bilaterally Cardiovascular Cardiovascular exam: Present regular rate and normal rhythm Neurological Exam Neurological exam: Present alert and oriented X3 Other Other exam information: 3 unaffected extremities are intact grossly to exam with full range of motion the left hand has ecchymosis swelling and pain at the fifth digit. There is no obvious deformity. Patient is able to keep the finger in flexion but extension causes more pain. I cannot palpate an obvious deformity. He is neurovascular intact distally. Medical Decision Making <JASEN Yanes - Last Filed: 01/15/24 21:55> Medical Records Medical records reviewed: Yes I reviewed the patient's medical records. Jean Pierre Inquiry Pt receiving controlled substance: No Vital Signs: 01/15/24 20:20 01/15/24 22:01 Temperature 98.3 F 98.0 F Temperature Source Oral Oral Pulse Rate 70 Pulse Rate [Left Radial] 80 Respiratory Rate 18 18 Blood Pressure 125/68 Blood Pressure [Right Arm] 155/98 H Blood Pressure Mean [Right Arm] 117 Blood Pressure Source Automatic Cuff Blood Pressure Source [Right Arm] Automatic Cuff Blood Pressure Position Sitting Blood Pressure Position [Right Arm] Sitting 02 Sat by Pulse Oximetry 100 Oxygen Delivery Method Room Air Room Air Orders (Tests/Meds): ED MEDICATIONS Discontinued Medications Generic Name Dose Route Start Last Admin Trade Name Freq PRN Reason Stop Dose Admin Acetaminophen 1,000 mg 01/15/24 20:38 01/15/24 20:48 Acetaminophen 500mg Tab PO 01/15/24 20:39 1,000 mg ONCE ONE Administration Ketorolac Tromethamine 30 mg 01/15/24 20:38 01/15/24 21:06 Ketorolac 30mg/Ml Vial IV 01/15/24 20:39 Not Given ONCE ONE Ketorolac Tromethamine 30 mg 01/15/24 20:38 01/15/24 20:49 Ketorolac 30mg/Ml Vial IM 01/15/24 20:39 30 mg ONCE ONE Administration Oxycodone HCl 5 mg 01/15/24 20:38 01/15/24 20:52 Oxycodone 5mg Immediate Release Tablet PO 02/14/24 20:37 5 mg Q6HP PRN Administration Severe Pain (7-10) ORDERS Category Date Time Status XR hand LT min 3V Stat Exams 01/15/24 20:38 Completed Medical Decision Narrative: In summary patient is a 43-year-old male who presents to the emergency department for evaluation of crush injury to the left fifth digit. Patient is hemodynamically stable upon arrival, afebrile. Exam is remarkable for trauma to the left fifth digit including a subungual hematoma and abrasions both on the dorsum and volar surfaces of the hand. Differential diagnosis includes contusion versus fracture versus laceration. Initial workup will be conducted with plain film x-rays. Initial interventions include Toradol Tylenol oxycodone. Initial workup reviewed by me and his plain film x-rays informally interpreted by me shows possible distal tuft fracture of the fifth digit otherwise no other acute processes noted.. Upon repeat evaluation patient had adequate pain control. Given this patient is appropriate for discharge with a referral to Dr. Jaime of orthopedics and a finger splint. <Vahid Adair, DO - Last Filed: 01/16/24 00:04> Vital Signs: 01/15/24 20:20 01/15/24 22:01 Temperature 98.3 F 98.0 F Temperature Source Oral Oral Pulse Rate 70 Pulse Rate [Left Radial] 80 Respiratory Rate 18 18 Blood Pressure 125/68 Blood Pressure [Right Arm] 155/98 H Blood Pressure Mean [Right Arm] 117 Blood Pressure Source Automatic Cuff Blood Pressure Source [Right Arm] Automatic Cuff Blood Pressure Position Sitting Blood Pressure Position [Right Arm] Sitting 02 Sat by Pulse Oximetry 100 Oxygen Delivery Method Room Air Room Air Orders (Tests/Meds): ED MEDICATIONS Discontinued Medications Generic Name Dose Route Start Last Admin Trade Name Freq PRN Reason Stop Dose Admin Acetaminophen 1,000 mg 01/15/24 20:38 01/15/24 20:48 Acetaminophen 500mg Tab PO 01/15/24 20:39 1,000 mg ONCE ONE Administration Ketorolac Tromethamine 30 mg 01/15/24 20:38 01/15/24 21:06 Ketorolac 30mg/Ml Vial IV 01/15/24 20:39 Not Given ONCE ONE Ketorolac Tromethamine 30 mg 01/15/24 20:38 01/15/24 20:49 Ketorolac 30mg/Ml Vial IM 01/15/24 20:39 30 mg ONCE ONE Administration Oxycodone HCl 5 mg 01/15/24 20:38 01/15/24 20:52 Oxycodone 5mg Immediate Release Tablet PO 02/14/24 20:37 5 mg Q6HP PRN Administration Severe Pain (7-10) ORDERS Category Date Time Status XR hand LT min 3V Stat Exams 01/15/24 20:38 Completed Medical Decision Narrative: In summary patient is a 43-year-old male who presents to the emergency department for evaluation of crush injury to the left fifth digit. Patient is hemodynamically stable upon arrival, afebrile. Exam is remarkable for trauma to the left fifth digit including a subungual hematoma and abrasions both on the dorsum and volar surfaces of the hand. Differential diagnosis includes contusion versus fracture versus laceration. Initial workup will be conducted with plain film x-rays. Initial interventions include Toradol Tylenol oxycodone. Initial workup reviewed by me and his plain film x-rays informally interpreted by me shows possible distal tuft fracture of the fifth digit otherwise no other acute processes noted.. Upon repeat evaluation patient had adequate pain control. Given this patient is appropriate for discharge with a referral to Dr. Jaime of orthopedics and a finger splint. I was consulted by the BURTON, and we discussed the complexity of the problems being addressed. I approved the treatment and management plan for this patient's care in the Emergency Department, thus performing a substantive portion of the medical decision making. Vahid Adair, DO Critical Care <JASEN Yanes - Last Filed: 01/15/24 21:55> Critical Care Time Critical Care Time: No
--- NOTE | 2024-01-15 20:38 | XR_ITS ---
PROCEDURE INFORMATION: Exam: XR Left Hand Exam date and time: 01/15/2024 8:43 PM Age: 43 years old Clinical indication: Injury or trauma; Other: Crushing injury; Hand; Left; Additional info: Crush injury to the fifth digit TECHNIQUE: Imaging protocol: Radiologic exam of the left hand. Views: 3 or more views. COMPARISON: No relevant prior studies available. FINDINGS: Bones/joints: Limited by patient position with finger flexion. Oblique fracture through the distal tuft 5th digit cannot be excluded. Soft tissues: Normal. IMPRESSION: Limited by patient position with finger flexion. Oblique fracture through the distal tuft 5th digit cannot be excluded.
[2024-01-15] MEDS: ACETAMINOPHEN 500MG TAB 1000 MG PO (20:48)
[2024-01-15] MEDS: KETOROLAC 30MG/ML VIAL 30 MG IM (20:49)
[2024-01-15] MEDS: OXYCODONE 5MG IMMEDIATE RELEASE TABLET 5 MG PO (20:52)
[2024-01-15 22:01] VITALS: BP 125/68; PULSE 70; RESP 18; TEMP 36.7; O2SAT 96
== END 2024-01-15 22:03 | disposition home or self-care (01) ==
PROVIDERS: Emergency Provider Emergency Medicine; PCP Internal Medicine Adolescent Medicine
DX: S62.637A Displaced fracture of distal phalanx of left little finger, initial encounter for closed fracture (principal); F17.210 Nicotine dependence, cigarettes, uncomplicated; W23.0XXA Caught, crushed, jammed, or pinched between moving objects, initial encounter
CPT/HCPCS: 73130; 96372; 96374; 99284

== ENCOUNTER 2024-10-23 16:27 | Emergency (ER) | payer OTHER, SELFPAY ==
[2024-10-23 16:29] VITALS: BP 170/111; PULSE 86; RESP 16; TEMP 36.7; O2SAT 98; BMI 34.0
--- NOTE | 2024-10-23 16:43 | CT_ITS ---
PROCEDURE INFORMATION: Exam: CT Head Without Contrast Exam date and time: 10/23/2024 5:03 PM Age: 44 years old Clinical indication: Weakness, facial; Additional info: R sided facial droop sparing forehead TECHNIQUE: Imaging protocol: Computed tomography of the head without contrast. Radiation optimization: All CT scans at this facility use at least one of these dose optimization techniques: automated exposure control; mA and/or kV adjustment per patient size (includes targeted exams where dose is matched to clinical indication); or iterative reconstruction. COMPARISON: No relevant prior studies available. FINDINGS: Brain: Normal. No hemorrhage. Unremarkable white matter. No mass effect. Cerebral ventricles: No ventriculomegaly. Paranasal sinuses: Visualized sinuses are unremarkable. No fluid levels. Mastoid air cells: Visualized mastoid air cells are well aerated. Bones: Unremarkable. No acute fracture. Soft tissues: Unremarkable. IMPRESSION: No acute intracranial abnormality.
--- NOTE | 2024-10-23 16:43 | CT_ITS ---
PROCEDURE INFORMATION: Exam: CTA Head With Contrast, Arteriography Exam date and time: 10/23/2024 5:05 PM Age: 44 years old Clinical indication: Weakness; Additional info: R sided facial droop sparing forehead TECHNIQUE: Imaging protocol: Computed tomographic angiography of the head with contrast. Exam focused on the arteries. 3D rendering (Not supervised by radiologist): MIP and/or 3D reconstructed images were created by the technologist. Radiation optimization: All CT scans at this facility use at least one of these dose optimization techniques: automated exposure control; mA and/or kV adjustment per patient size (includes targeted exams where dose is matched to clinical indication); or iterative reconstruction. Contrast material: ISOVUE; Contrast volume: 80 ml; Contrast route: INTRAVENOUS (IV); COMPARISON: CT HEAD/BRAIN WO CON 10/23/2024 5:03 PM FINDINGS: ANTERIOR CIRCULATION: Right internal carotid artery: Intracranial segment is patent with no significant stenosis. No aneurysm. Right middle cerebral artery: No occlusion or significant stenosis. No aneurysm. Right anterior cerebral artery: No occlusion or significant stenosis. No aneurysm. Left internal carotid artery: Intracranial segment is patent with no significant stenosis. No aneurysm. Left middle cerebral artery: No occlusion or significant stenosis. No aneurysm. Left anterior cerebral artery: No occlusion or significant stenosis. No aneurysm. POSTERIOR CIRCULATION: Right vertebral artery: No occlusion or significant stenosis. No aneurysm. Left vertebral artery: No occlusion or significant stenosis. No aneurysm. Basilar artery: No occlusion or significant stenosis. No aneurysm. Right posterior cerebral artery: origin of the right posterior cerebral artery. Left posterior cerebral artery: No occlusion or significant stenosis. No aneurysm. IMPRESSION: No hemodynamically significant stenosis or large vessel occlusion.
--- NOTE | 2024-10-23 16:43 | CT_ITS ---
PROCEDURE INFORMATION: Exam: CTA Neck With Contrast Exam date and time: 10/23/2024 5:05 PM Age: 44 years old Clinical indication: Weakness; Additional info: R sided facial droop sparing forehead TECHNIQUE: Imaging protocol: Computed tomographic angiography of the neck with contrast. Exam focused on the cervical segments of the vasculature. 3D rendering (Not supervised by radiologist): MIP and/or 3D reconstructed images were created by the technologist. Radiation optimization: All CT scans at this facility use at least one of these dose optimization techniques: automated exposure control; mA and/or kV adjustment per patient size (includes targeted exams where dose is matched to clinical indication); or iterative reconstruction. Contrast material: ISOVUE; Contrast volume: 80 ml; Contrast route: INTRAVENOUS (IV); COMPARISON: CT ANGIO HEAD 10/23/2024 5:05 PM FINDINGS: Right common carotid artery: No stenosis. No dissection or occlusion. Right internal carotid artery: No stenosis of the extracranial segment. No dissection or occlusion. Right external carotid artery: No occlusion or stenosis of the origin. Left common carotid artery: Mild atheromatous irregularity involving the left common carotid artery without hemodynamically significant stenosis. Left internal carotid artery: No stenosis of the extracranial segment. No dissection or occlusion. Left external carotid artery: No occlusion or stenosis of the origin. Right vertebral artery: No stenosis. No dissection or occlusion. Left vertebral artery: Left vertebral artery is dominant. Soft tissues: Normal. No significant soft tissue swelling. Bones/joints: No acute fracture. IMPRESSION: No significant stenosis or dissection. REFERENCES: NASCET CRITERIA. The degree of stenosis in the cervical segment of the internal carotid artery is based on NASCET criteria. Normal is no stenosis. Mild is less than 50% stenosis. Moderate is 50-69% stenosis. Severe is 70% to 99% stenosis. Total occlusion is no detectable patent lumen.
--- NOTE | 2024-10-23 17:00 | HMH.EDGENADL ---
Discharge Plan Disposition Patient Disposition: Home, Self-Care Prescriptions Prescriptions: New prednisone 10 mg tablet 10 mg PO DIRECTED Qty: 55 0RF Rx Instructions: 40 mg for 5 days 30 mg for 5 days 20 mg for 5 days 10 mg for 5 days 5 mg for 5 days Referrals Follow up/Referrals: Valentin Youssef MD [Primary Care Provider] - See instructions Activity Restrictions/Add. Instructions Additional Instructions/Restrictions: Call your family doctor to establish care for this visit to the emergency department and schedule follow-up within 48 hours to ensure improvement. If you have any worsening of your condition or any other concerning signs or symptoms, return to the emergency department or your primary care doctor for further evaluation. Prednisone taper as prescribed Clinical Impressions Clinical Impression: Facial nerve palsy Print Language Print Language: Setswana Discharge ED Provider: Que Voss General Adult HPI General Chief complaint: Neuro Symptoms/Deficit Stated complaint: sent by Domonique- facial numbness Time Seen by Provider: 10/23/24 16:34 Mode of Arrival: Ambulatory Source of Information: Patient Limitations: No Limitations Description of Symptoms (Recalled from ER Triage Doc. by RN): Patient reports right sided facial numbness, alteration in smile, and his left eye is blinking before his right. States this started yesterday. No other symptoms. History of Present Illness HPI narrative: Please note that above description of symptoms, in this electronic medical record under categorization of recalled from ER triage doctor by RN are reflective of an initial nursing assessment, however, is not reflective of my full history and physical exam that was personally taken and clarified. Consequentially, this preceding description of symptoms, which may include the patient's categorized chief complaint in the EMR, do not reflect my personal clinical impression, and the ultimate description of history of present illness and patient stated complaints should be deferred to this section of the note. Unless stated otherwise or congruent with this section of the note, additional signs, symptoms, or incongruence should be interpreted as inaccurate with my clinical impression. Related Data Previous Rx's ?Medication ?Instructions ?Recorded prednisone 10 mg tablet 10 mg PO DIRECTED #55 tabs 10/23/24 Allergies Allergy/AdvReac Type Severity Reaction Status Date / Time No Known Allergies Allergy Verified 06/03/19 14:10 [facility] Disclaimer: The information contained in this section may have been updated after the patient was seen, as this information can be updated by other users. 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 current occupational exposures/hazards: No caffeine: Yes Have you lived/traveled outside [place] in past 30 days?: No Contact w/someone who lives/traveled outside US past 30 days?: No Exposure to someone with infectious disease in past 14 days?: No Do you have a fever (greater than 100.4 F or 38 C)?: No Have you tested positive for COVID-19: No Exposed to someone with COVID-19 in past 14 days?: No Do you have a sore throat?: No Do you have a cough?: No Do you have any weakness?: No Do you have any diarrhea?: No Are you experiencing any unusual bleeding?: No Do you have any muscle aches/pain?: No Do you have any abdominal pain?: No Are you experiencing loss of taste or smell?: No Other Medical History Have you received the Flu Vaccine for this season: Yes Have you received the Pneumonia Vaccine: No ROS Obtained: Yes All systems reviewed & no additional complaints except as documented Physical Exam General General appearance: alert Head Head exam: atraumatic and normocephalic Eye Eye exam: Present normal appearance, PERRL and EOMI Neck Neck exam: Present normal inspection, full ROM and trachea midline Respiratory Respiratory exam: Absent respiratory distress, wheezes, stridor, accessory muscle use or prolonged expiratory phase Cardiovascular Cardiovascular exam: Present other (Pulses equal symmetric in upper and lower extremities) Abdominal Exam Abdominal exam: Present soft; Absent distention, tenderness or pulsatile mass Extremities Exam Extremities exam: Absent edema Neurological Exam Neurological exam: Present alert, oriented X3, motor sensory deficit and other (Patient has right sided facial droop, inability to completely close right eye. Spares forehead, equal wrinkles superior to the eyebrows); Absent CN II-XII intact Skin Skin exam: Present warm and dry; Absent diaphoresis or erythema Medical Decision Making Medical Records Medical records reviewed: Yes I reviewed the patient's medical records. Screening: Per USPSTF and CDC recommendations, given the prevalence of disease in our region, it is our hospital?s policy to screen for HIV and viral Hepatitis for all patients aged 18 and over and those with ongoing risk factors. Jean [place] Inquiry Pt receiving controlled substance: No Jean [place] was queried for this patient: No Vital Signs: 10/23/24 16:29 Temperature 98.0 F Temperature Source Oral Pulse Rate [Radial] 86 Respiratory Rate 16 Blood Pressure [Right Arm] 170/111 H Blood Pressure Mean [Right Arm] 130 Blood Pressure Source [Right Arm] Automatic Cuff Blood Pressure Position [Right Arm] Sitting 02 Sat by Pulse Oximetry 98 Oxygen Delivery Method Room Air Lab Data Lab Results 10/23/24 16:55: WBC 8.0, RBC 5.19, Hgb 15.3, Hct 46.7, MCV 90.0, MCH 29.5, MCHC 32.8, RDW 12.2, Plt Count 276, MPV 9.5, Neut % (Auto) 57.8, Lymph % (Auto) 31.4, [place] % (Auto) 8.8, Eos % (Auto) 1.3, Baso % (Auto) 0.4, Neut # (Auto) 4.6, Lymph # (Auto) 2.5, [place] # (Auto) 0.7, Eos # (Auto) 0.1, Baso # (Auto) 0.0, Sodium 142, Potassium 4.3, Chloride 106, Carbon Dioxide 28, Anion Gap 12.3, BUN 17, Creatinine 0.80, Estimated Creat Clear 174, Estimated GFR 105, Est GFR ( Amer) 127, Glucose 106 H, Calcium 9.8, Total Bilirubin 0.3, AST 50, ALT 65, Alkaline Phosphatase 80, Total Protein 7.6, Albumin 5.3 H, Globulin 2.3, Albumin/Globulin Ratio 2.3 H 10/23/24 16:55 10/23/24 16:55 Orders (Tests/Meds): ED MEDICATIONS Discontinued Medications Generic Name Dose Route Start Last Admin Trade Name Freq PRN Reason Stop Dose Admin Dexamethasone Sodium Phosphate 10 mg 10/23/24 16:43 10/23/24 17:08 Dexamethasone 4mg/Ml 1ml Vial IV 10/23/24 16:44 10 mg ONCE ONE Administration Iopamidol 80 ml 10/23/24 16:52 10/23/24 17:05 Iopamidol-370 (76%);100ml Bottle IV 10/23/24 16:53 80 ml ONCE ONE Administration Sodium Chloride 50 ml 10/23/24 16:52 10/23/24 17:05 0.9 % Sodium Chloride 50 Ml Vial IV 10/23/24 16:53 50 ml ONCE ONE Administration Sodium Chloride 10 ml 10/23/24 16:52 10/23/24 17:05 Sodium Chloride 0.9% 10ml Syr (Rad Only) IV 10/23/24 16:53 10 ml ONCE ONE Administration ORDERS Category Date Time Status CT angio head Stat Cat Scan 10/23/24 16:[address] angio neck Stat Cat Scan 10/23/24 16:[address] head/brain wo con Stat Cat Scan 10/23/24 16:43 Completed CBC w/Auto Diff [Complete Blood Count Auto Diff] Stat Lab 10/23/24 16:55 Completed CMP [Comprehensive Metabolic Panel] Stat Lab 10/23/24 16:55 Completed HIV Combo Stat Lab 10/23/24 16:55 Received Hepatitis C Ab Qual. W/ RFX Stat Lab 10/23/24 16:55 Received Medical Decision Narrative: 44-year-old male presenting with right-sided facial numbness and drooping. Started 2 days ago, getting worse. No recent illnesses. States that he feels like there is pain in the right side of his neck at the base of his neck as well as swelling. No vision changes, numbness, tingling, weakness anywhere else in his body. Never had anything like this before. History was obtained via conversation with patient. On arrival, patient hemodynamically stable, alert, oriented x4, appropriate, GCS 15, moving all extremities spontaneously, pupils equal and reactive to light. Full physical exam performed and significant for very clinically well-appearing male. Hypertensive. Cranial nerves significant with right-sided facial droop that spares the forehead. I do not appreciate any swelling in the neck, no bruits. Patient's range of motion of the neck is normal. Neurologically intact otherwise. Differential includes facial nerve palsy, intracranial hemorrhage, embolic stroke, among others. CT imaging to be obtained out of abundance of caution given neck tenderness at the base of the neck where the carotid is on the same side patient is having symptoms. Patient placed on continuous cardiac monitoring and continuous pulse ox with initial blood pressure 170/111, heart rate 86, saturation 98% on room air.Patient was given 10 mg Decadron IV for symptomatic management and correction of underlying abnormalities. Workup independently interpreted and significant for nonactionable hematologic workup. On independent interpretation of imaging, no intracranial hemorrhage, no abnormalities of the vessels of the head or neck. Patient resting at baseline on reevaluation. 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 Because patient at baseline without signs or symptoms of clinical decompensation, deemed appropriate for discharge. Results were relayed to patient who voiced understanding and were agreeable to outpatient management and follow up. I discussed my clinical impression with patient and answered all questions. At this time, the evidence for any other entities in the differential is insufficient to warrant any further testing or ED observation. This was explained as well. Advisory was given that persistent or worsening symptoms require further evaluation. I confirmed the understanding of this discussion. [employer] Salesperson disclaimer Much of this encounter note is an electronic chromosomal disorders counselor spoken language to printed text. Electronic chromosomal disorders counselor of the spoken language may permit errors. Although I have reviewed the note, some errors may still exist. Critical Care Critical Care Time Critical Care Time: No
[2024-10-23 17:01] LABS: Basophils % 0.4 % (0.1-2.0); Eosinophils # 0.1 K/mm3 (0.0-0.4); Eosinophils % 1.3 % (0.1-12.0); Hematocrit 46.7 % (42.0-52.0); Hemoglobin 15.3 g/dL (14.1-18.0); Lymphocytes # 2.5 K/mm3 (0.7-4.5); Lymphocytes % 31.4 % (10-50); Mean Corpuscular HGB Conc 32.8 g/dL (31.8-35.4); Mean Corpuscular Hemoglobin 29.5 pg (27.0-31.2); Mean Platelet Volume 9.5 fl (7.4-10.4); Monocytes # 0.7 K/mm3 (0.1-1.0); Monocytes % 8.8 % (1.7-9.3); Neutrophils # 4.6 K/mm3 (1.8-7.8); Neutrophils % 57.8 % (37.0-80.0); Platelet Count 276 K/mm3 (142-424); Red Blood Count 5.19 M/mm3 (4.60-6.20); Red Cell Distribution Width 12.2 % (11.5-17.5)
[2024-10-23] MEDS: 0.9 % SODIUM CHLORIDE 50 ML VIAL IV (17:05)
[2024-10-23] MEDS: IOPAMIDOL-370 (76%);100ML BOTTLE 80 ML IV (17:05)
[2024-10-23] MEDS: SODIUM CHLORIDE 0.9% 10ML SYR (RAD ONLY) 10 ML IV (17:05)
[2024-10-23 17:08] LABS: Albumin Level 5.3 g/dl (3.5-5.0); Chloride 106 mmol/L (98-107); Potassium 4.3 mmoL/L (3.5-5.1); Sodium 142 mmol/L (136-145)
[2024-10-23] MEDS: DEXAMETHASONE 4MG/ML 1ML VIAL 10 MG IV (17:08)
[2024-10-23 17:11] LABS: Alanine Aminotransferase 65 U/L (12-78); Albumin/Globulin Ratio 2.3 (1.1-1.8); Alkaline Phosphatase 80 U/L (38-126); Anion Gap 12.3 mEq/L (5-15); Aspartate Amino Transferase 50 U/L (17-59); Bilirubin,Total 0.3 mg/dl (0.2-1.3); Blood Urea Nitrogen 17 mg/dl (9-20); Carbon Dioxide 28 mmol/L (22.0-30.0); Creatinine Clearance Estimated 174 mL/min (50-200); Estimated Glomerular Filt Rate 105 ml/min (>60); GFR (African American) 127 ML/MIN (>60); Globulin 2.3 g/dL (1.3-3.2); Total Protein,Serum 7.6 g/dl (6.3-8.2)
[2024-10-23 17:12] LABS: Calcium 9.8 mg/dl (8.4-10.2); Glucose 106 mg/dl (74-100)
--- NOTE | 2024-10-23 17:15 | PC.NURSE ---
ROUNDED ON THE PT. THE PT VOICES THAT HE DOES NOT NEED ANYTHING AT THIS TIME. CALL LIGHT IS WITHIN REACH OF THE PT. FAMILY MEMBER IS PRESENT AT THE BEDSIDE.
[2024-10-23 17:30] VITALS: BP 146/101; PULSE 79; O2SAT 97
[2024-10-23 17:58] VITALS: BP 141/101; PULSE 80; RESP 17; TEMP 36.7; O2SAT 98
--- NOTE | 2024-10-23 17:58 | PC.NURSE ---
ROUNDED ON THE PT. THE PT VOICES THAT HE DOES NOT NEED ANYTHING AT THIS TIME. CALL LIGHT IS WITHIN REACH OF THE PT.
[2024-10-23 19:51] LABS: HIV Combo NEGATIVE (Negative)
[2024-10-23 19:58] LABS: Hepatitis C Ab Qual. W/ RFX NEGATIVE (Negative)
== END 2024-10-23 18:09 | disposition home or self-care (01) ==
PROVIDERS: Emergency Provider Emergency Medicine; PCP Internal Medicine Adolescent Medicine
DX: G51.0 Bell's palsy (principal); R20.0 Anesthesia of skin
CPT/HCPCS: 70450; 70496; 70498; 80053; 85025; 86803; 87389; 96374; 99285; J1100; Q9967

== ENCOUNTER 2025-05-14 10:00 | Outpatient (CLI) | payer BC, SELFPAY ==
[2025-05-14 16:14] LABS: Coronavirus 19, PCR Not Detected (NotDetected); Influenza A, PCR Not Detected (NotDetected); Influenza B, PCR Not Detected (NotDetected)
== END 2025-05-14 23:59 | disposition home or self-care (01) ==
LOC: LAB.DROPOF 05-15 12:15
PROVIDERS: PCP Student in an Organized Health Care Education/Training Program; Visit Provider Student in an Organized Health Care Education/Training Program
DX: J06.9 Acute upper respiratory infection, unspecified (principal)
CPT/HCPCS: 87636

== ENCOUNTER 2025-07-11 10:49 | Emergency (ER) | payer OTHER, SELFPAY ==
[2025-07-11] VITALS (8 sets, daily range): BP systolic 138–166; BP diastolic 87–113; PULSE 76–96; RESP 16; TEMP 37; O2SAT 95–99; BMI 34.0
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
--- NOTE | 2025-07-11 10:55 | ECG_ITS ---
APPROVED REPORT Exam: Resting ECG HR:86 bpm ECG Measurements Heart Rate 86 AXES DC 180 P 57 QRSd 85 QRS 71 QT 378 T 61 QTc 422 Conclusion SINUS RHYTHM NORMAL ECG UNCONFIRMED REPORT Electronically signed by : Iker Monroe, 07/11/2025 15:40:01
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
[2025-07-11 11:14] LABS: Hematocrit 50.6 % (42.0-52.0); Hemoglobin 16.9 g/dL (14.1-18.0); Immature Granulocytes % 0.2 %; Mean Corpuscular HGB Conc 33.4 g/dL (31.8-35.4); Mean Corpuscular Hemoglobin 30.1 pg (27.0-31.2); Mean Corpuscular Volume 90.0 fl (80-94); Nucleated Red Blood Cells % 0 %; Platelet Count 282 K/mm3 (142-424); Red Blood Count 5.62 M/mm3 (4.60-6.20); Red Cell Distribution Width-SD 41.4 fL; White Blood Count 8.0 K/mm3 (4.8-10.8)
[2025-07-11 11:17] LABS: Albumin Level 4.7 g/dl (3.5-5.0); Chloride 104 mmol/L (98-107); Potassium 4.0 mmoL/L (3.5-5.1); Sodium 139 mmol/L (136-145)
[2025-07-11 11:20] LABS: Alanine Aminotransferase 46 U/L (12-78); Albumin/Globulin Ratio 1.4 (1.1-1.8); Alkaline Phosphatase 84 U/L (38-126); Anion Gap 11.0 mEq/L (5-15); Aspartate Amino Transferase 40 U/L (17-59); Bilirubin,Total 0.6 mg/dl (0.2-1.3); Blood Urea Nitrogen 14 mg/dl (9-20); Carbon Dioxide 28 mmol/L (22.0-30.0); Creatinine Clearance Estimated 199 mL/min (50-200); Creatinine,Serum 0.70 mg/dl (0.66-1.25); Estimated Glomerular Filt Rate 123 ml/min (>60); GFR (African American) 148 ML/MIN (>60); Globulin 3.3 g/dL (1.3-3.2); Total Protein,Serum 8.0 g/dl (6.3-8.2)
[2025-07-11 11:21] LABS: Calcium 9.4 mg/dl (8.4-10.2); Glucose 119 mg/dl (74-100)
[2025-07-11 11:39] LABS: Troponin I < 0.01 ng/ml (0.00-0.034)
[2025-07-11] MEDS: IOPAMIDOL-370 (76%);100ML BOTTLE 160 ML IV (11:40)
[2025-07-11] MEDS: SODIUM CHLORIDE 0.9% 10ML SYR (RAD ONLY) 10 ML IV (11:40)
[2025-07-11] MEDS: 0.9 % SODIUM CHLORIDE 50 ML VIAL 100 ML IV (11:40)
[2025-07-11] MEDS: ACETAMINOPHEN 1,000MG/100ML VIAL 1000 MG IV (11:55)
[2025-07-11 12:00] LABS: Microscopic, Urine URINE MICROSCOPIC (MICROSCOPIC)
--- NOTE | 2025-07-11 12:00 | PC.NURSE ---
called and spoke with Gus Gambino pt employer and informed him that we hadnt received the drug screen paperwork they reported needed. he stated he would drive one up here.
[2025-07-11 12:14] LABS: Bilirubin,Urine Negative (Negative); Color,Urine YELLOW (Yellow); Glucose,Urine (UA) Negative (Negative); Ketones,Urine Negative (Negative); Leukocyte Esterase,Urine Negative (Negative); PH,Urine 7.5 (5.0-8.5); Protein,Urine Negative (Negative); Specific Gravity, Urine 1.010 (1.005-1.030); Urobilinogen,Urine 0.2 EU/dl (0.2)
[2025-07-11 12:15] LABS: Activated Partial Thrombo Time 25.6 seconds (22.8-30.6); INR 0.97 (0.9-1.1); Prothrombin Time 10.8 seconds (10.1-12.5)
[2025-07-11] MEDS: HYDROCODONE/APAP 5/325 MG TABLET 2 TAB PO (13:17)
== END 2025-07-11 14:07 | disposition home or self-care (01) ==
PROVIDERS: Emergency Provider Student in an Organized Health Care Education/Training Program; PCP Internal Medicine Adolescent Medicine
DX: S06.0X0A Concussion without loss of consciousness, initial encounter (principal); S16.1XXA Strain of muscle, fascia and tendon at neck level, initial encounter; R22.0 Localized swelling, mass and lump, head; V85.0XXA Driver of special construction vehicle injured in traffic accident, initial encounter
CPT/HCPCS: 70450; 70486; 70496; 70498; 71275; 72125; 72128; 72131; 72192; 74174; 80053; 81001; 84484; 85025; 85610; 85730; 93005; 96374; 99285; 99291; G0390; J0131; Q9967